=== PATIENT | male | born 1955 | race Caucasian/White ===

== ENCOUNTER 2020-10-21 11:25 | Emergency (ER) | payer OTHER ==
[~2020-10-21] VITALS: Ht 172.7 cm; Wt 81.7 kg
[2020-10-21 12:33] LABS: HEMOGLOBIN 14.9 gm/dL (14.0-18.0); MCH 26.9 pg (26.0-34.0); MCHC 33.2 g/dL (28.0-37.0); MCV 81.1 fL (80.0-100.0); PLATELET COUNT 146 thou/uL (150-400); RBC 5.54 mil/uL (4.50-6.00); RDW 13.9 % (10.5-14.5); WBC 2.7 thou/uL (4.0-11.0)
[2020-10-21 12:41] LABS: CALCIUM 8.2 mg/dL (8.5-10.1); CREATININE 1.1 mg/dL (0.7-1.3); POTASSIUM 3.7 mmol/L (3.5-5.1)
[2020-10-21 12:47] LABS: ALBUMIN 3.2 g/dL (3.4-5.0); TOTAL BILIRUBIN 0.4 mg/dL (0.2-1.0); TOTAL PROTEIN 7.4 g/dL (6.4-8.2)
[2020-10-21 13:08] LABS: ABSOLUTE NEUTROPHILS 1.7 thou/uL (1.4-8.2); TEARDROPS 1+
[2020-10-21 13:09] LABS: LARGE PLATELETS FEW; POLYCHROMASIA 1+
[2020-10-21] MEDS ORDERED: ZPAK PO (14:16)
[2020-10-21] MEDS ORDERED: DECADRON4 MG PO (14:16)
[2020-10-21 14:24] VITALS: BP 112/68
== END 2020-10-21 14:25 | disposition home or self-care (01) ==
LOC: ER 11:25
PROVIDERS: Emergency Medicine
DX: U07.1 COVID-19 (principal); J12.82 Pneumonia due to coronavirus disease 2019